=== PATIENT | male | born 1940 | race Caucasian/White ===

== ENCOUNTER → 2016-08-06 | Outpatient (CLI) | payer OTHER, MEDICARE ==
[~2016-08-06] MED LIST: ASPI-435 PO; CTP1 PO; LOVA10TA2 PO; NRV5 PO; TPRSR50 PO
[2016-08-06 13:18] LABS: ALT/SGPT 22 U/L (12-78); BLOOD UREA NITROGEN 14 mg/dl (7-18); BUN/CREATININE RATIO 12.7 (10-20); CARBON DIOXIDE 26 mmol/L (21-32); CHLORIDE 106 mmol/L (98-107); CHOLESTEROL 155 mg/dl (0-200); GLUCOSE 95 mg/dl (70-99); POTASSIUM 3.7 mmol/L (3.5-5.1); SODIUM 143 mmol/L (136-145)
[2016-08-06 13:21] LABS: ALB/GLOB RATIO 0.9 (0.9-2); ALKALINE PHOSPHATASE 96 U/L (45-117); AST/SGOT 16 U/L (15-37); CALCIUM 8.6 mg/dl (8.5-10.1); CHOLESTEROL/HDL RATIO 2.6; HDL CHOLESTEROL 59 mg/dl; LDL CHOLESTEROL CALCULATED 70 mg/dl; TRIGLYCERIDES 128 mg/dl (0-150); VERY LOW DENSITY LIPOPROT CALC 26 mg/dl
[2016-08-06 13:42] LABS: ESTIMATED AVERAGE GLUCOSE 105 mg/dl; HA1C FLAG Normal (Normal)
== END | disposition home or self-care (01) ==
LOC: C.LABPBG 09:15
PROVIDERS: ATTEND Physician Assistant
DX: Z00.00 Encounter for general adult medical examination without abnormal findings (principal); R73.9 Hyperglycemia, unspecified; E78.5 Hyperlipidemia, unspecified

== ENCOUNTER → 2017-01-30 | Outpatient (CLI) | payer OTHER, MEDICARE ==
[2017-01-30 17:14] LABS: BASO % 0.8 %; BASO ABS # 0.05 K/uL (0-0.2); COMPLETE YES; EOS % 3.7 %; IG% 0.3 %; LYMPH % 25.8 %; LYMPH ABS # 1.67 K/uL (1.2-3.4); MEAN CELL VOLUME 88.6 fL (80-100); MEAN CORPUSCULAR HEMOGLOBIN 31.2 pg (25-34); MEAN CORPUSCULAR HGB CONC 35.2 g/dl (32-36); MEAN PLATELET VOLUME 9.5 fL (7.4-10.4); MONO % 7.1 %; NEUT % 62.3 %; PLATELET COUNT 303 K/uL (130-400); RED BLOOD COUNT 5.87 M/uL (4.7-6.1); WHITE BLOOD COUNT 6.47 K/uL (4.8-10.8)
[2017-01-30 17:23] LABS: ALT/SGPT 20 U/L (12-78); BLOOD UREA NITROGEN 12 mg/dl (7-18); BUN/CREATININE RATIO 12.4 (10-20); CALCIUM 9.4 mg/dl (8.5-10.1); CARBON DIOXIDE 33 mmol/L (21-32); CHLORIDE 100 mmol/L (98-107); CHOLESTEROL 176 mg/dl (0-200); CREATININE 0.94 mg/dl (0.60-1.40); GLUCOSE 88 mg/dl (70-99); POTASSIUM 3.5 mmol/L (3.5-5.1); SODIUM 137 mmol/L (136-145)
[2017-01-30 17:27] LABS: ALKALINE PHOSPHATASE 100 U/L (45-117); AST/SGOT 16 U/L (15-37); CHOLESTEROL/HDL RATIO 2.8; HDL CHOLESTEROL 62 mg/dl; LDL CHOLESTEROL CALCULATED 79 mg/dl; TRIGLYCERIDES 173 mg/dl (0-150); VERY LOW DENSITY LIPOPROT CALC 35 mg/dl
== END | disposition home or self-care (01) ==
LOC: C.LABPBG 15:09
PROVIDERS: ATTEND Physician Assistant
DX: Z00.00 Encounter for general adult medical examination without abnormal findings (principal); R19.7 Diarrhea, unspecified

== ENCOUNTER → 2017-02-02 | Outpatient (CLI) | payer OTHER, MEDICARE ==
[2017-02-05 15:21] LABS: O&P SOURCE OTHER-STOOL
== END | disposition home or self-care (01) ==
LOC: C.LABSPEC 17:19
PROVIDERS: ATTEND Physician Assistant
DX: Z00.00 Encounter for general adult medical examination without abnormal findings (principal); R19.7 Diarrhea, unspecified

== ENCOUNTER → 2017-04-16 | Outpatient (CLI) | payer OTHER, MEDICARE ==
[2017-04-16 17:33] LABS: BASO % 0.8 %; BASO ABS # 0.05 K/uL (0-0.2); EOS % 4.6 %; EOS ABS # 0.29 K/uL (0-0.5); HEMOGLOBIN 15.6 g/dL (14.0-18.0); IG# 0.02 K/uL (0.00-0.02); LYMPH % 24.2 %; LYMPH ABS # 1.51 K/uL (1.2-3.4); MEAN CELL VOLUME 88.2 fL (80-100); MEAN CORPUSCULAR HEMOGLOBIN 31.3 pg (25-34); MEAN CORPUSCULAR HGB CONC 35.5 g/dl (32-36); MEAN PLATELET VOLUME 9.4 fL (7.4-10.4); MONO % 7.4 %; MONO ABS # 0.46 K/uL (0.11-0.59); NEUT % 62.7 %; NEUT ABS # 3.91 K/uL (1.4-6.5); PLATELET COUNT 285 K/uL (130-400); RED CELL DISTRIBUTION WIDTH CV 13.1 % (11.5-14.5); RED CELL DISTRIBUTION WIDTH SD 41.6 fL (36.4-46.3); WHITE BLOOD COUNT 6.24 K/uL (4.8-10.8)
[2017-04-16 18:07] LABS: ALBUMIN 3.4 gm/dl (3.4-5.0); ALKALINE PHOSPHATASE 102 U/L (45-117); ALT/SGPT 29 U/L (12-78); AST/SGOT 17 U/L (15-37); BLOOD UREA NITROGEN 13 mg/dl (7-18); CALCIUM 8.7 mg/dl (8.5-10.1); CARBON DIOXIDE 27 mmol/L (21-32); CREATININE 0.96 mg/dl (0.60-1.40); GLUCOSE 116 mg/dl (70-99); POTASSIUM 3.3 mmol/L (3.5-5.1); SODIUM 138 mmol/L (136-145); TOTAL PROTEIN 7.1 gm/dl (6.4-8.2)
== END | disposition home or self-care (01) ==
LOC: C.LABPBG 11:50
PROVIDERS: ATTEND Physician Assistant
DX: G57.93 Unspecified mononeuropathy of bilateral lower limbs (principal); Z13.21 Encounter for screening for nutritional disorder

== ENCOUNTER → 2017-05-04 | Outpatient (CLI) | payer OTHER, MEDICARE ==
[2017-05-04 11:46] LABS: BLOOD UREA NITROGEN 14 mg/dl (7-18); CALCIUM 8.8 mg/dl (8.5-10.1); CARBON DIOXIDE 30 mmol/L (21-32); CREATININE 1.06 mg/dl (0.60-1.40); GLUCOSE 103 mg/dl (70-99); POTASSIUM 3.5 mmol/L (3.5-5.1); SODIUM 140 mmol/L (136-145)
== END | disposition home or self-care (01) ==
LOC: C.LABPBG 09:50
PROVIDERS: ATTEND Physician Assistant
DX: E87.6 Hypokalemia (principal)